=== PATIENT | female | born 1985 | race Caucasian/White ===

== ENCOUNTER 2020-09-16 11:38 | Emergency (ER) | payer MEDICARE, MEDICAID, SELFPAY ==
[2020-09-16 12:07] VITALS: BP 126/68; PULSE 95; RESP 14; TEMP 36.7; O2SAT 100; BMI 25.7
--- NOTE | 2020-09-16 12:11 | PC.NURSE ---
Patient arrived ambulatory to ED carring several heavy coats, bags and a wool blanket. She states she is in the area from [facility] and has run out of Suboxone. She continued on to say her car was stuck somewhere and the nurse private duty now has her car. The number she called says the nurse private duty is closed today. The patient verbalized she is frustrated and has no other options. She does not know what to do. Provider and social work aware.
--- NOTE | 2020-09-16 12:40 | ED_ITS ---
HPI - Recheck/Abnormal Lab/Rx <YONAS Ricks - Last Filed: 09/16/20 12:48> General Chief Complaint: Recheck/Abnormal Lab/Rx Stated Complaint: Ran out of medication Time Seen by Provider: 09/16/20 12:21 Source: patient Mode of arrival: Ambulatory Limitations: no limitations History of Present Illness HPI narrative: This is a 35 year female, smoker, who presents to ED in request of Suboxone refill. Patient states she has from [facility] and she is currently stuck in [place] with a car trouble. She states ran out of Suboxone she takes 32 mg total in a day yesterday morning. Patient is working through with [employer] to get her car back and she is currently living outdoor which has been tough on her. Patient states usually she gets her medication delivered to her. Review of Systems <YONAS Ricks - Last Filed: 09/16/20 12:48> Review of Systems Narrative: General: Denies fever, chills, fatigue, malaise, sweats. Respiratory: Denies dyspnea, cough, wheezing, hemoptysis, sputum. Cardiovascular: Denies chest pain, palpitations, orthopnea, edema. Gastrointestinal: Denies nausea, vomiting, abdominal pain, diarrhea, constipation, melena. Musculoskeletal: Denies weakness, joint pain or bony pain. Neurologic: Denies weakness, headache, numbness, change in speech, confusion, seizures, incoordination. Patient History <YONAS Ricks - Last Filed: 09/16/20 12:48> Social History Smoking Status: Current every day smoker Smoking Status: Current every day smoker alcohol intake frequency: 0-2 drinks per day Substance Use Type: does not use Exam <YONAS Ricks - Last Filed: 09/16/20 12:48> Narrative Exam Narrative: General appearance: well developed, well nourished, in no acute distress. Head: normocephalic, atraumatic, no scalp lesions, non-tender. ENT: Hearing grossly intact. Airway patent. Neck/Thyroid: neck supple, full range of motion, no visible masses or meningeal signs. No JVD, non-tender without lymphadenopathy. Skin: no suspicious rashes, lesions over visible areas. Warm and dry and appropriate color for ethnicity. Heart: no clubbing, no cyanosis, no edema. Lungs: Breathing even and unlabored. No stridor. No accessory muscles used. Able to speak in full sentences. Chest: normal shape and expansion. Abdomen: non-obese, non-distended. Neurologic: alert and oriented. 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 Psych: good eye contact, normal affect. Initial Vital Signs Initial Vital Signs: Vital Signs Temperature 98.1 F 09/16/20 12:07 Pulse Rate 95 H 09/16/20 12:07 Respiratory Rate 14 09/16/20 12:07 Blood Pressure 126/68 09/16/20 12:07 Pulse Oximetry 100 09/16/20 12:07 <Thea Hurt DO - Last Filed: 09/18/20 06:57> Initial Vital Signs Initial Vital Signs: Vital Signs Temperature 98.1 F 09/16/20 12:07 Pulse Rate 95 H 09/16/20 12:07 Respiratory Rate 14 09/16/20 12:07 Blood Pressure 126/68 09/16/20 12:07 Pulse Oximetry 100 09/16/20 12:07 Scores <YONAS Ricks - Last Filed: 09/16/20 12:48> GCS Rina coma scale eye opening: Spontaneous Rina coma scale verbal response: Orientated Rina coma scale motor response: Obey commands Rina coma scale total score: 15 Course <YONAS Ricks - Last Filed: 09/16/20 12:48> Orders Ordered: ED Orders 09/16/20 12:15 Consult to [facility] [place] - Director Web Stat Vital Signs Vital signs: Vital Signs - 8 hr 09/16/20 12:07 Temperature 98.1 F Pulse Rate 95 H Respiratory Rate 14 Blood Pressure 126/68 Pulse Oximetry 100 <Thea Hurt DO - Last Filed: 09/18/20 06:57> Orders Ordered: ED Orders 09/16/20 12:15 Consult to [facility] Director Web Stat Vital Signs Vital signs: Vital Signs - 8 hr 09/16/20 12:07 Temperature 98.1 F Pulse Rate 95 H Respiratory Rate 14 Blood Pressure 126/68 Pulse Oximetry 100 MDM - Recheck/Abnormal Lab/Rx <Eder Lovelace YONAS - Last Filed: 09/16/20 12:48> Differential Diagnosis Differential diagnosis: Likely encounter for medication refill Medical Records Attestation: I reviewed the patient's medical records. MDM Narrative Medical decision making narrative: This is a 35 year female who presents to ED in request of Suboxone refill. During obtaining HPI, patient informed that I am not able to refill Suboxone at this time. Patient does not appears to be going through withdrawal symptoms at this time and last dose was taken about 24 hours ago. Usually the worst which worst symptom is around 72 hours from the last Suboxone use. Patient became hostile, verbally abusive and aggressive when she heard that Suboxone cannot be refilled using profanity and stating You're a fucking liar. Patient calmly informed again that I can provider referral to [facility] for her to contact tomorrow for an assistance. Shortl y after, she stormed out of ED with her belongings. Discharge Plan Departure Patient Disposition: Home Clinical Impression: Encounter for medication refill Activity Restrictions/Additional Instructions: Your here requesting refills on Suboxone which unfortunately I am unable to prescribe this today. However please contact [facility] tomorrow they may be able help you at [phone]. What to do: *Take your medications as directed. *Follow up with your primary care provider in 2-3 days, call for an appointment. Let them know you were seen in the ED and that we asked you to be seen in follow up. *Return to ED if you have any new, worsening, or concerning symptoms, such as [chest pain, breathing difficulty, unable to tolerate fluids, fever, or any acute concerns]. <Thea Hurt DO - Last Filed: 09/18/20 06:57> Cosign ED Attending Beatrice Attestation: I was immediately available in the department for consultation. Documentation has been reviewed. I agree with assessment and plan.
--- NOTE | 2020-09-16 13:10 | CM.SWNOTE ---
ADMINISTRATIVE COURT JUSTICE Note This ADMINISTRATIVE COURT JUSTICE requested for consult to discuss community resources w/this 35 yo, here from the [facility], ran out of her suboxone, currently homeless. Met w/patient briefly to introduce social work role, and explained once another acute situation in the ED was addressed, this ADMINISTRATIVE COURT JUSTICE could return to complete a more through assessment of need, and discuss available community/long term resources w/patient. Checked in w/E[facility] ED ADMINISTRATIVE ASST and she explained patient became verbally abusive, combative and left when she was told she would not get a Suboxone refill, encounter summarized below: Medical decision making narrative: This is a 35 year female who presents to ED in request of Suboxone refill. During obtaining HPI, patient informed that I am not able to refill Suboxone at this time. Patient does not appears to be going through withdrawal symptoms at this time and last dose was taken about 24 hours ago. Usually the worst which worst symptom is around 72 hours from the last Suboxone use. Patient became hostile, verbally abusive and aggressive when she heard that Suboxone cannot be refilled using profanity and stating You're a fucking liar. Patient calmly informed again that I can provider referral to [facility] for her to contact tomorrow for an assistance. Shortly after, she stormed out of ED with her belongings. LAURA Graff
== END 2020-09-16 12:41 | disposition home or self-care (01) ==
PROVIDERS: Emergency Provider Nurse Practitioner Family
DX: Z76.0 Encounter for issue of repeat prescription (principal)
CPT/HCPCS: 99281